=== PATIENT | male | born 1990 | race Caucasian/White ===

== ENCOUNTER 2020-03-06 00:39 | Emergency (ER) | payer OTHER ==
[~2020-03-06] VITALS: Ht 188 cm; Wt 129.4 kg
--- OUTSIDE RECORDS SUMMARY | 2020-03-06 00:44 | CCD ---
Author Author [facility] Organization [facility] Address Unknown Phone Unavailable Care Team Providers Care Soil Conservation Teacher Name Role Phone AMEES, Jocy CAMPBELL MD Unavailable Unavailable MARAVEGIAS, Jocy CAMPBELL MD Unavailable Unavailable MARAVEGIAS, Jocy CAMPBELL MD Unavailable Unavailable MARAVEGIAS, Jocy CAMPBELL MD Unavailable Unavailable MARAVEGIAS, Jocy CAMPBELL MD Unavailable Unavailable MARAVEGIAS, Jocy CAMPBELL MD Unavailable Unavailable MARAVEGIAS, Jocy CAMPBELL MD Unavailable Unavailable MARAVEGIAS, Jocy CAMPBELL MD Unavailable Unavailable MARAVEGIAS, N SHANNAN TREVIÑO Unavailable Unavailable MARAVEGIAS, Jocy CAMPBELL MD Unavailable Unavailable MARAVEGIAS, Jocy CAMPBELL MD Unavailable Unavailable MARAVEGIAS, Jocy CAMPBELL MD Unavailable Unavailable MARAVEGIAS, N SHANNAN TREVIÑO Unavailable Unavailable MARAVEGIAS, N SHANNAN TREVIÑO Unavailable Unavailable Re-disclosure Warning The records that you are about to access may contain information from federally-assisted alcohol or drug abuse programs. If such information is present, then the following federally mandated warning applies: This information has been disclosed to you from records protected by federal confidentiality rules (42 CFR part 2). The federal rules prohibit you from making any further disclosure of this information unless further disclosure is expressly permitted by the written consent of the person to whom it pertains or as otherwise permitted by 42 CFR part 2. A general authorization for the release of medical or other information is NOT sufficient for this purpose. The Federal rules restrict any use of the information to criminally investigate or prosecute any alcohol or drug abuse patient.The records that you are about to access may contain highly sensitive health information, the redisclosure of which is protected by Article 27-F of the [facility] Public Health law. If you continue you may have access to information: Regarding HIV / AIDS; Provided by facilities licensed or operated by the [facility] Office of Mental Health; or Provided by the [facility] Office for People With Developmental Disabilities. If such information is present, then the following [facility] mandated warning applies: This information has been disclosed to you from confidential records which are protected by state law. State law prohibits you from making any further disclosure of this information without the specific written consent of the person to whom it pertains, or as otherwise permitted by law. Any unauthorized further disclosure in violation of state law may result in a fine or halfway sentence or both. A general authorization for the release of medical or other information is NOT sufficient authorization for further disc losure. Allergies and Adverse Reactions Type Description Substance Reaction Status Data Source(s ) Drug allergy Drug allergy No Known Allergies [facility] Encounters Encounter Providers Location Date Indications Data Source(s ) ([facility]) Stretcher Required Patients [address] [place] [address] 01/08/2020 12:00:00 AM EST eCW1 ([facility]) Unknown [address] [facility] [address] 01/08/2020 12:00:00 AM EST eCW1 ([facility]) ([facility]) Stretcher Required Patients [address] [place] [address] 01/01/2020 12:00:00 AM EST eCW1 ([facility]) ([facility]) Stretcher Required Patients [address] [place] [address] 12/24/2019 12:00:00 AM EST eCW1 ([facility]) Emergency Attender: SHANNAN YANCEY MD ED-ED 0 07/26/2019 12:38:00 PM EDT - 07/26/2019 01:15:00 PM EDT L SHOUDER INJ [facility] L SHOUDER INJ Patient discharged. Insurance Providers Payer name Policy type / Coverage type Policy ID Covered libertarian ID Covered libertarian's relationship to mckeon Policy Mckeon Plan Information [facility] [employer] [id number] SP [id number] S [id number] Problems, Conditions, and Diagnoses Code Display Name Description Problem Type Effective Dates Data Source(s) L05.91 [id number] Pilonidal cyst Problem 12/24/2019 12:00:00 A M EST eCW1 ([facility]) Surgeries/Procedures Procedure Description Date Indications Data Source(s) FINE NEEDLE ASPIRATION W/O IMAGING GUIDANCE 01/08/2020 12:00:00 AM EST eCW1 ([facility]) FINE NEEDLE ASPIRATION W/O IMAGING GUIDANCE 01/01/2020 12:00:00 AM EST eCW1 ([facility]) FINE NEEDLE ASPIRATION W/O IMAGING GUIDANCE 12/24/2019 12:00:00 AM EST eCW1 ([facility]) RADEX SHOULDER COMPLETE MINIMUM 2 VIEWS 07/26/2019 12: 00:00 AM [facility] Results ID Date Data Source [id number] 07/26/2019 04:12:00 PM [facility] Imaging Services Department Imaging Report [address] [place] [address] %(RAD)RES..mtdd.print.filter("line") Name: CHENG ANTHONY : 1990 Age/Sex: 29M Ordering Provider: Shannan Yancey MD Med Rec #: [id number] Reg Status: [facility] ER Room #: Date of Service: 07/26/19 Report Number: [id number] cc:PCP None Send Report To: [id number] XRP/XR Shoulder Lt Reason for exam: injury FINDINGS: There is normal alignment and position of the bones of the shoulder. No evidence for acute bony injury is identified. The soft tissues also appear normal. IMPRESSION: UNREMARKABLE SHOULDER. Time portable performed: Fluoroscopy time in seconds: Number of Exposures: Contrast Agent in ml: Method of Administration: REPORT SIGNATURE ON FILE Reported By: Igor Camacho MD <Electronically signed by Seb Camacho MD> 07/27/19 0844 Dictation Date/Time: 07/26/19 1319 Transcribed Date/Time: 07/26/19 1612 Floor Winder: JESSICA Name Value Range Interpretation Code Description Data Yasmin rce(s) Supporting Document(s) Procedure Social History Code Duration Value Status Description Data Source(s ) Smoking 01/08/2020 12:00:00 AM EST Current Smoker completed Curre nt Smoker eCW1 ([facility]) Smoking 01/08/2020 12:00:00 AM EST Current Smoker completed Curre nt Smoker eCW1 ([facility]) Smoking 01/08/2020 12:00:00 AM EST Current Smoker completed Curre nt Smoker eCW1 ([facility]) Smoking 01/01/2020 12:00:00 AM EST Current Smoker completed Curre nt Smoker eCW1 ([facility]) Vital Signs ID Date Data Source UNK Name Value Range Interpretation Code Description Data Source(s) Diastolic blood pressure 74 mm[Hg] 74 mm[Hg] eCW1 ([facility]) Systolic blood pressure 154 mm[Hg] 154 mm[Hg] e CW1 ([facility]) Body temperature 97.2 [degF] 97.2 [degF] eCW1 ( [facility]) Respiratory rate 18 /min 18 /min eCW1 ([facility]) Heart rate 74 /min 74 /min eCW1 ([facility]) Body mass index (BMI) [Ratio] 32.74 kg/m2 32.74 kg/m2 W1 ([facility]) Body height 74 [in_i] 74 [in_i] eCW1 ([facility]) Body weight kg eCW1 ([facility]) Body weight 255 [lb_av] 255 [lb_av] eCW1 ([facility]) Diastolic blood pressure 80 mm[Hg] 80 mm[Hg] eCW1 ([facility]) Systolic blood pressure 138 mm[Hg] 138 mm[Hg] e CW1 ([facility]) Body temperature 95.7 [degF] 95.7 [degF] eCW1 ( [facility]) Respiratory rate 16 /min 16 /min eCW1 ([facility]) Heart rate 69 /min 69 /min eCW1 ([facility]) Body mass index (BMI) [Ratio] 32.74 kg/m2 32.74 kg/m2 eCW1 ([facility]) Body height 74 [in_i] 74 [in_i] eCW1 ([facility]) Body weight kg eCW1 ([facility]) Body weight 255 [lb_av] 255 [lb_av] eCW1 ([facility]) Diastolic blood pressure 73 mm[Hg] 73 mm[Hg] eCW1 ([facility]) Systolic blood pressure 139 mm[Hg] 139 mm[Hg] e CW1 ([facility]) Body temperature 97.0 [degF] 97.0 [degF] eCW1 ( [facility]) Respiratory rate 17 /min 17 /min eCW1 ([facility]) Heart rate 77 /min 77 /min eCW1 ([facility]) Body mass index (BMI) [Ratio] 32.74 kg/m2 32.74 kg/m2 eCW1 ([facility]) Body height 74 [in_i] 74 [in_i] eCW1 ([facility]) Body weight 255 [lb_av] 255 [lb_av] eCW1 ([facility]) ID Date Data Source [id number] 07/27/2019 08:46:00 AM EDT [facility] Name Value Range Interpretation Code Description Data Source(s) Weight Measurement Method 8 8 [facility] Weight 4160 4160 [facility] pital Temperature Source 3 3 [facility] Temperature 98.7 98.7 [facility] spital Respiratory Effort 1 1 [facility] Respiratory Rate 18 18 [facility] Pulse Assessment Method 4 4 [facility] Pulse Rate 68 68 [facility] Height 74 74 [facility] Blood Pressure 128/70 128/70 [facility]
--- OUTSIDE RECORDS SUMMARY | 2020-03-06 00:44 | CCD ---
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 Alcohol Screening: Question Answer Notes Did you have a drink containing alcohol in the past year? Ye s Points 5 Interpretation Positive How often did you have six or more drinks on one occas ion in the past year? Never (0 points) How many drinks did you have on a typica l day when you were drinking in the past year? 3 or 4 (1 point) How often did you have a drink containing alcohol in t he past year? Four or more times a week (4 points) Tobacco Use: Question Answer Notes Are you a: current smoker How many cigarettes a day do you smoke? 3 CIGARETTES/DAILY REASON FOR REFERRAL No Information VITAL SIGNS Weight 255 lbs Dec, Weight-kg per pt kg Dec, Height 74 in Dec, BMI 32.74 kg/m2 Dec, Heart Rate 69 /min Dec, Respiratory Rate 16 /min Dec, Temperature 95.7 degrees Fahrenheit Dec, Oximetry 100% Dec, Blood pressure systolic 138 mm Hg Dec, Blood pressure diastolic 80 mm Hg Dec, MEDICATIONS Medication SIG (Take, Route, Frequency, Duration) Notes Start Da te End Date Status Albuterol Sulfate HFA 108 (90 Base) MCG/ACT 1 puff as needed Inhalation every 4 hrs Active PROCEDURES Procedure Date Ordered Result Body Site LIDOCAINE 4% CREAM TOPICAL 2020-01-01 N/A RESULTS No Results REASON FOR VISIT Pilonidal Cyst MEDICAL (GENERAL) HISTORY Type Description Date Medical History PILONIDAL CYST Medical History ASTHMA Surgical History No Surgical history information Hospitalization History CONCUSSOION-MULTIPLE TIMES Goals Section No Information Health Concerns No Information MEDICAL EQUIPMENT No Information MENTAL STATUS No Information FUNCTIONAL STATUS No Information ASSESSMENTS Encounter Date Diagnosis Assessment Notes Treatment Notes Treatm ent Clinical Notes Dec, Non-pressure chronic ulcer o f back with unspecified severity (ICD- 10 - L98.429) Dec, Pilonidal cyst (ICD-10 - L05.91) Dec, Immunization not carried out because of patient refusal (ICD-10 - Z28.21) PLAN OF TREATMENT Next Appt Details 1 Week Reason: Provider Name:Олег Conley, 08:30:00 AM, [address] [place], [address], Insurance Providers Payer Name Payer Address Payer Phone Insured Name Patient Relati onship to Insured Coverage Start Date Coverage End Date [facility] [employer] S HE[employer] INSURANCE [address] [place] [address] CHENG ANTHONY self
--- OUTSIDE RECORDS SUMMARY | 2020-03-06 00:44 | CCD ---
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 Alcohol [...] VITAL SIGNS Weight 255 lbs Dec, Weight-kg PER PT kg 24 Nov, 2020 Height 74 in Dec, BMI 32.74 kg/m2 Dec, Heart Rate 74 /min Dec, Respiratory Rate 18 /min Dec, Temperature 97.2 degrees Fahrenheit Dec, Oximetry 97 Dec, Blood pressure systolic 154 mm Hg Dec, Blood pressure diastolic 74 mm Hg Dec, MEDICATIONS Medication SIG (Take, Route, Frequency, Duration) Notes Start Da te End Date Status Albuterol Sulfate HFA 108 (90 Base) MCG/ACT 1 puff as needed Inhalation every 4 hrs Active PROCEDURES from 1990 to 2020-01-23 Procedure Date Ordered Result Body Site LIDOCAINE 4% CREAM TOPICAL 2020-01-08 N/A RESULTS No Results REASON FOR VISIT Pilondial Cyst MEDICAL (GENERAL) HISTORY Type Description Date [...] L98.429) Dec, Pilonidal cyst (ICD-10 - L05.91) PLAN OF TREATMENT Next Appt Details 2 Weeks Reason: Provider Name:Олег Conley, 11:15:00 AM, [address] [place], [address], Insurance Providers Payer Name Payer Address Payer Phone Insured Name Patient Relati onship to Insured Coverage Start Date Coverage End Date [facility] [employer]IVE [employer]UR[employer] [address] [place] [address] CHENG ANTHONY self
--- OUTSIDE RECORDS SUMMARY | 2020-03-06 00:44 | CCD ---
Author Author [facility] Organization [facility] Address Unknown Phone Unavailable Care Team Providers Care Electrical Technology Instructor Name Role Phone Олег Conley Unavailable PROBLEMS Type Condition ICD9-CM Code [id number] Code Onset Dates Condition S tatus SNOMED Code Notes Problem Pilonidal cyst L05.91 Active [id number] ALLERGIES No Known Allergies ENCOUNTERS from 1990 to 2020-01-08 Encounter Location Date Provider Diagnosis [facility] [address] [place] [address] Dec Олег Conley IMMUNIZATIONS No Information SOCIAL HISTORY Tobacco Use: Social History Observation Description Date Details (start date - stop date) Current Smoker Sex Assigned At : Social History Observation Description Sex Assigned At Unknown Education: Question Answer Notes Level of Education: College Language: Question Answer Notes Languages spoken: Japanese Spiritism: Question Answer Notes Spiritism No gnosticism beliefs that would impact health care. Alcohol [...] REASON FOR REFERRAL No Information VITAL SIGNS No information MEDICATIONS Medication SIG (Take, Route, Frequency, Duration) Notes Start Da te End Date Status Albuterol Sulfate HFA 108 (90 Base) MCG/ACT 1 puff as needed Inhalation every 4 hrs Active PROCEDURES No Information RESULTS No Results REASON FOR VISIT No Information MEDICAL (GENERAL) HISTORY Type Description Date Medical History PILONIDAL CYST Medical History ASTHMA Surgical History No Surgical history information Hospitalization History CONCUSSOION-MULTIPLE TIMES Goals Section No Information Health Concerns No Information MEDICAL EQUIPMENT No Information MENTAL STATUS No Information FUNCTIONAL STATUS No Information ASSESSMENTS No Information PLAN OF TREATMENT Next Appt Details Provider Name:Олег Conley, 08:30:00 AM, [address] [place], [address], Insurance Providers Payer Name Payer Address Payer Phone Insured Name Patient Relati onship to Insured Coverage Start Date Coverage End Date [facility] [employer] S HEALTH INSURANCE [address] [place] [address] CHENG ANTHONY self
--- OUTSIDE RECORDS SUMMARY | 2020-03-06 00:44 | CCD ---
Author Author [facility] Organization [facility] Address Unknown Phone Unavailable Care Team Providers Care Net Manager Name Role Phone Олег Conley Unavailable PROBLEMS Type Condition ICD9-CM Code [id number] Code Onset Dates Condition S tatus SNOMED Code Notes Problem Pilonidal cyst L05.91 Active 20111843 ALLERGIES No Known Allergies ENCOUNTERS from 1990 to 2020 Encounter Location Date Provider Diagnosis [facility] [address] [place] [address] Dec Олег Conley Open wound T14.8XXA and Pilonidal cyst L 05.91 IMMUNIZATIONS No Information SOCIAL HISTORY Tobacco Use: Social History Observation Description Date Details (start date - stop date) Current Smoker Sex Assigned At : Social History Observation Description Sex Assigned At Unknown Education: Question Answer Notes Level of Education: College Language: Question Answer Notes Languages spoken: Kazakh Latter-Day: Question Answer Notes Latter-Day No christian beliefs that would impact health care. Alcohol [...] Information VITAL SIGNS Weight 255 lbs Dec, Height 74 in Dec, BMI 32.74 kg/m2 Dec, Heart Rate 77 /min Dec, Respiratory Rate 17 /min Dec, Temperature 97.0 degrees Fahrenheit Dec, Oximetry 95% Dec, Blood pressure systolic 139 mm Hg Dec, Blood pressure diastolic 73 mm Hg Dec, MEDICATIONS Medication SIG (Take, Route, Frequency, Duration) Notes Start Da te End Date Status Albuterol Sulfate HFA 108 (90 Base) MCG/ACT 1 puff as needed Inhalation every 4 hrs Active PROCEDURES Procedure Date Ordered Result Body Site LIDOCAINE 4% CREAM TOPICAL 2019-12-24 N/A RESULTS No Results REASON FOR VISIT [...] Treatment Notes Treatm ent Clinical Notes Dec, Open wound (ICD-10 - T14.8XXA) Dec, Pilonidal cyst (ICD-10 - L05.91) Dec, Other LIDO 2% INJECTA BLE LOT [id number] EXP 07/06; 6CC INJECTED TO COCCYX WOUND PLAN OF TREATMENT Next Appt Details 1 Week Reason: Provider Name:Олег Conley 09:00:00 AM, [address] [place], [address], Insurance Providers Payer Name Payer Address Payer Phone Insured Name Patient Relati onship to Insured Coverage Start Date Coverage End Date [facility] [employer] S HE[employer] INSURANCE [address] [place] [address] CHENG ANTHONY self
[2020-03-06] MEDS: GI COCKTAIL 50ML BTL(HYOSCYAMINE/MAALOX/LIDOCAINE VISCOUS)(1:3:1) PO ONE (03:40)
--- OUTSIDE RECORDS SUMMARY | 2020-03-06 04:00 | CCD ---
Author Author [facility] Organization [facility] Address Unknown Phone Unavailable Care Team Providers Care Operations Research Analyst Name Role Phone DORISAVEGIAS, Jocy CAMPBELL MD Unavailable Unavailable MARAVEGIAS, Jocy [...] Unavailable MARAVEGIAS, Jocy CAMPBELL MD Unavailable Unavailable Re-disclosure Warning The records that [...] is protected by Article 27-F of the [facility] Public Health law. If you continue you may have access to information: Regarding HIV / AIDS; Provided by facilities licensed or operated by the [facility] Office of Mental Health; or Provided by the [facility] Office for People With Developmental Disabilities. If such information is present, then the following [facility] mandated warning applies: This information has been [...] law may result in a fine or nursing home sentence or both. A general authorization for the release of medical or other information is NOT sufficient authorization for further disc losure. Allergies and Adverse Reactions Type Description Substance Reaction Status Data Source(s ) Drug allergy Drug allergy No Known Allergies [facility] Encounters Encounter Providers Location Date Indications Data Source(s ) ([facility] STR[facility]) Stretcher Required Patients [address] [place] [address] 01/08/2020 12:00:00 AM EST eCW1 (Critical access hospital) Unknown [address] [facility] [address] 01/08/2020 12:00:00 AM EST eCW1 ([facility]) ([facility]) Stretcher Required Patients [address] [place] [address] 01/01/2020 12:00:00 AM EST eCW1 (Critical access hospital) ([facility]) Stretcher Required Patients [address] [place] [address] 12/24/2019 12:00:00 AM EST eCW1 (Critical access hospital) Emergency Attender: SHANNAN YANCEY MD ED-ED 0 07/26/2019 12:38:00 PM EDT - 07/26/2019 01:15:00 PM EDT L SHOUDER INJ [facility] L SHOUDER INJ Patient discharged. Insurance Providers Payer name Policy type / Coverage type Policy ID Covered constitution party ID Covered constitution party's relationship to mckeon Policy Mckeon Plan Information [facility] ACTIVE DUTY [id number] SP [id number] S [id number] Problems, Conditions, and Diagnoses Code Display Name Description Problem Type Effective Dates Data Source(s) L05.91 [id number] Pilonidal cyst Problem 12/24/2019 12:00:00 A M EST eCW1 ([facility]) Surgeries/Procedures Procedure Description Date Indications Data Source(s) FINE NEEDLE ASPIRATION W/O IMAGING GUIDANCE 01/08/2020 12:00:00 AM EST eCW1 ([facility]) FINE NEEDLE ASPIRATION W/O IMAGING GUIDANCE 01/01/2020 12:00:00 AM EST eCW1 ([facility]) FINE NEEDLE ASPIRATION W/O IMAGING GUIDANCE 12/24/2019 12:00:00 AM EST eCW1 ([facility]) RADEX SHOULDER COMPLETE MINIMUM 2 VIEWS 07/26/2019 12: 00:00 AM [facility] Results ID Date Data Source [id number] 07/26/2019 04:12:00 PM [facility] Imaging Services Department Imaging Report [address] [place] [address] %(RAD)RES..mtdd.print.filter("line") Name: CHENG ANTHONY : 1990 Age/Sex: 29M Ordering Provider: Shannan Yancey MD Med Rec #: [id number] Reg Status: DEP ER Room #: Date of Service: 07/26/19 Report Number: [id number] cc:PCP None Send Report To: [id number] XRP/XR Shoulder Lt Reason for exam: injury [...] Date/Time: 07/26/19 1319 Transcribed Date/Time: 07/26/19 1612 Technical Photographer: JESSICA Name Value Range Interpretation Code Description Data Yasmin rce(s) Supporting Document(s) Procedure Social History Code Duration Value Status Description Data Source(s ) Smoking 01/08/2020 12:00:00 AM EST Current Smoker completed Curre nt Smoker eCW1 ([facility]) Smoking 01/08/2020 12:00:00 AM EST Current Smoker completed Curre nt Smoker eCW1 ([facility]) Smoking 01/08/2020 12:00:00 AM EST Current Smoker completed Curre nt Smoker eCW1 ([facility]) Smoking 01/01/2020 12:00:00 AM EST Current Smoker completed Curre nt Smoker eCW1 ([facility]) Vital Signs ID Date Data Source UNK Name Value Range Interpretation Code Description Data Source(s) Diastolic blood pressure 74 mm[Hg] 74 mm[Hg] eCW1 ([facility]) Systolic blood pressure 154 mm[Hg] 154 mm[Hg] e CW1 ([facility]) Body temperature 97.2 [degF] 97.2 [degF] eCW1 ( [facility]) Respiratory rate 18 /min 18 /min eCW1 ([facility]) Heart rate 74 /min 74 /min eCW1 ([facility]) Body mass index (BMI) [Ratio] 32.74 kg/m2 32.74 kg/m2 [facility] ([facility]) Body height 74 [in_i] 74 [in_i] eCW1 (Critical access hospital) Body weight kg W1 (Critical access hospital) Body weight 255 [lb_av] 255 [lb_av] eCW1 ([facility]) Diastolic blood pressure 80 mm[Hg] 80 mm[Hg] eCW1 ([facility]) Systolic blood pressure 138 mm[Hg] 138 mm[Hg] e CW1 ([facility]) Body temperature 95.7 [degF] 95.7 [degF] eCW1 ( [facility]) Respiratory rate 16 /min 16 /min eCW1 ([facility]) Heart rate 69 /min 69 /min eCW1 ([facility]) Body mass index (BMI) [Ratio] 32.74 kg/m2 32.74 kg/m2 eCW1 ([facility]) Body height 74 [in_i] 74 [in_i] eCW1 (Critical access hospital) Body weight kg eCW1 (Critical access hospital) Body weight 255 [lb_av] 255 [lb_av] eCW1 ([facility]) Diastolic blood pressure 73 mm[Hg] 73 mm[Hg] eCW1 ([facility]) Systolic blood pressure 139 mm[Hg] 139 mm[Hg] e CW1 ([facility]) Body temperature 97.0 [degF] 97.0 [degF] eCW1 ( [facility]) Respiratory rate 17 /min 17 /min eCW1 ([facility]) Heart rate 77 /min 77 /min eCW1 ([facility]) Body mass index (BMI) [Ratio] 32.74 kg/m2 32.74 kg/m2 W1 ([facility]) Body height 74 [in_i] 74 [in_i] eCW1 (Critical access hospital) Body weight 255 [lb_av] 255 [lb_av] eCW1 ([facility]) ID Date Data Source [id number] 07/27/2019 08:46:00 AM EDT Ahsan ramos Name Value Range Interpretation Code Description Data Source(s) Weight Measurement Method 8 8 [facility] Weight 4160 4160 [facility] Temperature Source 3 3 [facility] Temperature 98.7 98.7 [facility] spital Respiratory Effort 1 1 [facility] Respiratory Rate 18 18 [facility] Pulse Assessment Method 4 4 [facility] Pulse Rate 68 68 [facility] pital Height 74 74 [facility] Blood Pressure 128/70 128/70 [facility]
[2020-03-06] MEDS ORDERED: CARA1TAB6 PO (04:28)
[2020-03-06] MEDS ORDERED: PEPC1TAB5 PO (04:28)
[2020-03-06 04:42] VITALS: BP 126/74
[2020-03-06] MEDS: FAMOTIDINE 20 MG TAB PO ONE (04:42)
[2020-03-06] MEDS: SUCRALFATE SUSP 1GM/10ML UD PO ONE (04:42)
== END 2020-03-06 04:48 | disposition home or self-care (01) ==
LOC: M ED 00:39
DX: K21.00 Gastro-esophageal reflux disease with esophagitis, without bleeding (principal); Z88.8 Allergy status to other drugs, medicaments and biological substances